=== PATIENT | male | born 1945 | race Caucasian/White ===

== ENCOUNTER 2017-04-29 08:23 | Emergency (ER) | payer OTHER ==
[2017-04-29 08:47] VITALS: BMI 24.7
--- NOTE | 2017-04-29 09:44 | PDOC ---
History of Present Illness - General Chief Complaint: Shortness of Breath Stated Complaint: SOB Time Seen by Provider: 04/29/17 08:39 History Source: Patient Exam Limitations: No Limitations - History of Present Illness Initial Comments: 04/29/17 08:41 The patient is a 72 year old male, with a significant past medical history of HTN, DM, COPD, vertigo, GERD, who presents to the emergency department with increasing SOB since this morning. Patient has chronic SOB, but states he woke up this morning with increased work of breathing and a few day hx of cough with yellow sputum. Patient also states he has chest pain diffusely across his chest , which is pleuritic in nature. Patient denies fever, chills, N/V/D/C, lower extremity edema, or calf pain. Allergies: NKDA Past surgical history: hernia surgery Social history: Former smoker >20 yrs 1 ppd PMD - Dr. Sheth Past History - Past Medical History Allergies/Adverse Reactions: Allergies Allergy/AdvReac Type Severity Reaction Status Date / Time No Known Allergies Allergy Unverified 04/29/17 08:28 Home Medications: Ambulatory Orders Azilsartan Medoxomil [Edarbi] 80 mg PO DAILY 01/29/13 Cetirizine HCl [Zyrtec] 10 mg PO DAILY 01/29/13 Clopidogrel Bisulfate 75 mg PO DAILY 01/29/13 Hydrocortisone 2.5% Topical Cr [Anusol-Hc -] 1 applic RC ONCE 01/29/13 Meclizine HCl [Antivert -] 12.5 mg PO TID 01/29/13 Multivitamin,Ther and Minerals [Vitamin and Minerals] 1 PO DAILY 01/29/13 Novolog Mix 70-30 Flexpen Syrn 1 unit SQ PRN 01/29/13 Omeprazole [Prilosec (RX)] 20 mg PO DAILY #0 capsule 01/29/13 Ranolazine [Ranexa] 500 mg PO DAILY 01/29/13 Sitagliptin Phosphate [Januvia] 100 mg PO DAILY 01/29/13 Albuterol Sulfate Inhaler - [Ventolin HFA Inhaler -] 1 puff IH BID PRN #1 inhaler 04/29/17 Azithromycin 250 mg PO DAILY #4 tablet 04/29/17 Prednisone [Prednisone 50 MG TABLETS] 50 mg PO DAILY #4 tablet 10/07/17 Anemia: No Asthma: Yes Cancer: No Cardiac Disorders: No CVA: No COPD: No CHF: No Dementia: No Diabetes: Yes GI Disorders: No Disorders: No HTN: Yes Hypercholesterolemia: No Liver Disease: Yes (CIRRHOSIS) Seizures: No Thyroid Disease: No - Surgical History Abdominal Surgery: No (hernia) Appendectomy: No Cardiac Surgery: No Cholecystectomy: No Lung Surgery: No Neurologic Surgery: No Orthopedic Surgery: No - Suicide/Smoking/Psychosocial Hx Smoking History: Never smoked Have you smoked in the past 12 months: No If you are a former smoker, when did you quit?: 10 YEARS Information on smoking cessation initiated: No Hx Alcohol Use: No Drug/Substance Use Hx: No Substance Use Type: None Review of Systems - Review of Systems Able to Perform ROS?: Yes Comments:: 04/29/17 08:41 GENERAL/CONSTITUTIONAL: No fever or chills. No weakness. HEAD, EYES, EARS, NOSE AND THROAT: No change in vision. No ear pain or discharge. No sore throat. CARDIOVASCULAR: + chest pain, + shortness of breath RESPIRATORY: +cough w/ yellow sputum, +wheezing, No hemoptysis. GASTROINTESTINAL: No nausea, vomiting, diarrhea or constipation. GENITOURINARY: No dysuria, frequency, or change in urination. MUSCULOSKELETAL: No joint or muscle swelling or pain. No neck or back pain. SKIN: No rash NEUROLOGIC: No headache, vertigo, loss of consciousness, or change in strength/ sensation. ENDOCRINE: No increased thirst. No abnormal weight change HEMATOLOGIC/LYMPHATIC: No anemia, easy bleeding, or history of blood clots. ALLERGIC/IMMUNOLOGIC: No hives or skin allergy. *Physical Exam - Vital Signs Last Vital Signs Temp Pulse Resp BP Pulse Ox 97.8 F 98 H 20 140/67 94 L 04/29/17 08:25 04/29/17 08:25 04/29/17 08:25 04/29/17 08:25 04/29/17 08:25 - Physical Exam Comments: 04/29/17 08:41 GENERAL: Awake, alert, and fully oriented, in no acute distress. On non rebreather HEAD: No signs of trauma, normocephalic, atraumatic EYES: PERRLA, EOMI, sclera anicteric, conjunctiva clear NECK: Normal ROM, supple, no lymphadenopathy, JVD, or masses LUNGS: No distress, speaks full sentences, Inspiratory and expiratory wheezing bilaterally, No crackles heard on auscultation HEART: Regular rate and rhythm, normal S1 and S2, no murmurs, rubs or gallops, peripheral pulses normal and equal bilaterally. ABDOMEN: Soft, +RUQ tenderness, +Branch's sign, normoactive bowel sounds. No guarding, no rebound. No masses EXTREMITIES: Normal inspection, Normal range of motion, no edema. No clubbing or cyanosis. NEUROLOGICAL: Cranial nerves II through XII grossly intact. Normal speech, normal gait, no focal sensorimotor deficits SKIN: Warm, Dry, normal turgor, no rashes or lesions noted. ED Treatment Course - LABORATORY CBC & Chemistry Diagram: 04/29/17 10:30 04/29/17 10:30 Medical Decision Making - Medical Decision Making 04/29/17 10:55 The patient is a 72 year old male, with a significant past medical history of HTN, DM, COPD, vertigo, GERD, who presents to the emergency department with increasing SOB since this morning. DDx: COPD exacerbation, Pneumonia, Acute cholecystitis Less likely: PE, ACS Plan: CBC, CMP, Lipase, VBG, sx treatment, RUQ u/s, BNP, CXR, EKG, Cardiac profile 04/29/17 11:12 CXR- no acute pathology 04/29/17 12:12 CBC, CMP, Lipase- unremarkable Patient feeling much better. Pt is stable for d/c. *DC/Admit/Observation/Transfer Diagnosis at time of Disposition: COPD (chronic obstructive pulmonary disease) Qualifiers: COPD type: COPD with acute exacerbation Qualified Code(s): J44.1 - Chronic obstructive pulmonary disease with (acute) exacerbation; J44.1 - Chronic obstructive pulmonary disease with (acute) exacerbation; J44.1 - Chronic obstructive pulmonary disease with (acute) exacerbation; J44.1 - Chronic obstructive pulmonary disease with (acute) exacerbation - Discharge Dispostion Disposition: HOME Condition at time of disposition: Stable - Prescriptions Prescriptions: Azithromycin 250 mg PO DAILY #4 tablet Prednisone [Prednisone 50 MG TABLETS] 50 mg PO DAILY #4 tablet Albuterol Sulfate Inhaler - [Ventolin HFA Inhaler -] 1 puff IH BID PRN #1 inhaler PRN Reason: Wheezing - Referrals Referrals: Pete Sheth MD [Primary Care Provider] - - Patient Instructions Printed Discharge Instructions: DI for Chronic Obstructive Pulmonary Disease Additional Instructions: Please follow up with your primary care provider within 1 week. Your ultrasound showed some findings on your kidney that may be concerning for cancer. It is important to follow up for further evaluation. If you have chest pain, worsening shortness of breath, or any new/worsening symptoms please come back to the hospital immediately.
[2017-04-29] MEDS ORDERED: ALBUTEROL SO4 2.5/IPRATROPIUM 0.5 INH SOL 3 ML VIAL.NEB. NEB ONE ×2 (10:19→11:39)
[2017-04-29] MEDS ORDERED: predniSONE 20 MG TABLET (UD) PO ONE (10:47)
[2017-04-29] MEDS ORDERED: predniSONE 10 MG TABLET (UD) ONE (10:52)
[2017-04-29] MEDS ORDERED: predniSONE 20 MG TABLET (UD) ONE (10:52)
[2017-04-29 10:55] LABS: MCH 27.6 pg (25.7-33.7); MCHC 31.9 g/dl (32.0-35.9); MEAN CELL VOLUME 86.6 fl (80-96); MEAN PLT VOLUME 8.3 fl (7.5-11.1); PLATELET COUNT 126 K/MM3 (134-434); WHITE BLOOD COUNT 6.6 K/mm3 (4.0-10.0)
[2017-04-29 11:11] LABS: VENOUS PH 7.44 (7.32-7.42)
[2017-04-29 11:20] LABS: ALBUMIN 2.8 g/dl (3.4-5.0); ALK PHOS 179 U/L (45-117); ANION GAP 8 (8-16); BILIRUBIN,TOTAL 1.3 mg/dL (0.2-1.0); CALCIUM 8.4 mg/dL (8.5-10.1); CO2 28 mmol/L (21-32); CREATININE 0.7 mg/dL (0.7-1.3); GLUCOSE,RANDOM 168 mg/dL (74-106); SGPT/ALT 32 U/L (12-78); TOT PROT 6.7 g/dl (6.4-8.2)
[2017-04-29 11:22] LABS: SGOT/AST 48 U/L (15-37)
[2017-04-29] MEDS ORDERED: AZITHROMYCIN 500 MG TABLET PO ONE (11:23)
[2017-04-29 11:24] LABS: INR 1.16 (0.82-1.09); PROTHROMBIN TIME (PATIENT) 12.8 SEC (9.98-11.88)
[2017-04-29 11:31] LABS: TOTAL CELLS COUNTED 100
[2017-04-29 11:32] LABS: BASOPHIL (MANUAL) 2 % (0-2.0)
[2017-04-29] MEDS ORDERED: AZITHROMYCIN 250 MG TABLET PO ONE (11:38)
[2017-04-29 11:41] LABS: CPK 256 IU/L (39-308)
[2017-04-29 11:42] LABS: TROPONIN I < 0.02 ng/ml (0.00-0.05)
[2017-04-29] MEDS ORDERED: AZITHROMYCIN 250 MG TABLET ONE (11:53)
--- NOTE | 2017-04-29 12:13 | PDOC ---
Attending Attestation - Resident Resident Name: BinduCarlal - ED Attending Attestation I have performed the following: I have examined & evaluated the patient, The case was reviewed & discussed with the resident, I agree w/resident's findings & plan, Exceptions are as noted - HPI HPI: 04/29/17 12:13 72 M with h/o HTN, DM, COPD, vertigo, GERD presenting to ER with SOB. Pt reports having a cough for several days. Today, he began to feel very wheezy and came to ER. Pt reports using his albuterol pump with some relief of his symptoms. He denies CP/SOB. States that this feels like his usual COPD exacerbations. Denies recent immobilization/travel. Denies leg swelling. No h/o DVT/PE. - Physicial Exam PE: 04/29/17 12:12 "GENERAL: Awake, alert, and fully oriented, in no acute distress HEAD: No signs of trauma EYES: PERRLA, EOMI, sclera anicteric, conjunctiva clear ENT: Auricles normal inspection, hearing grossly normal, nares patent, oropharynx clear without exudates. Moist mucosa NECK: Nontender, no stepoffs, Normal ROM, supple, no lymphadenopathy, JVD, or masses LUNGS: Mild bilateral expiratory wheezes, no crackles HEART: Regular rate and rhythm, normal S1 and S2, no murmurs, rubs or gallops ABDOMEN: Mild epigastric TTP, Soft, normoactive bowel sounds. No guarding, no rebound. No masses EXTREMITIES: Normal range of motion, no edema. No clubbing or cyanosis. No cords, erythema, or tenderness NEUROLOGICAL: Cranial nerves II through XII intact. 5/5 strength and sensation in all extremities, Normal speech, normal gait SKIN: Warm, Dry, normal turgor, no rashes or lesions noted. " - Medical Decision Making 04/29/17 12:14 72 M with SOB and mild expiratory wheezes on exam. Consistent with COPD exacerbation. Pt with no s/s volume overload or heart failure on exam. No evidence of DVT/PE. No chest pain to suggest ACS. Given duration of symptoms, single troponin should be sufficient to r/o ACS. Pt also found to have mild epigastric TTP on exam. Likely gastritis, will r/o acute carline or pancreatitis with labs and US. - Labs, Trop, BNP - CXR - Nebs, steroids, azithro - Abdominal US 04/29/17 12:17 Trop, BNP negative. CXR without evidence of PNA. Abd US negative for acute process. Pt reassessed- lung exam is completely clear s/p nebs and steroids. Abdominal exam now completely non-tender. Pt reports resolution of his SOB, now feels well and is requesting to go home. Vitals stable (O2 sat low 90s but likely pt' s baseline given h/o COPD). Pt is well appearing, in no distress, now with completely non-focal exam. Clinically stable for discharge. Will DC with prednisone, z-pack, an albuterol pump for mild COPD exacerbation.
[2017-04-29 12:36] VITALS: BP 145/76; PULSE 80; TEMP 98.3
--- NOTE | 2017-04-29 18:44 | EKG ---
Test Reason : Blood Pressure : / mmHG Vent. Rate : 084 BPM Atrial Rate : 084 BPM P-R Int : 170 ms QRS Dur : 148 ms QT Int : 432 ms P-R-T Axes : 065 -70 019 degrees QTc Int : 510 ms NORMAL SINUS RHYTHM POSSIBLE LEFT ATRIAL ENLARGEMENT LEFT ANTERIOR FASCICULAR BLOCK RIGHT BUNDLE BRANCH BLOCK ATRIAL ABNORMALITY ABNORMAL ECG CLINICAL CORRELATION IS RECOMMENDED REPEAT EKG INDICATED Confirmed by LEONARDO PARKS MD ([id number]) on 04/29/2017 6:44:16 PM Referred By: Confirmed By:LEONARDO PARKS MD
== END 2017-04-29 12:36 | disposition home or self-care (01) ==
LOC: JER 08:23
PROC: 3E0F7GC Introduction of Other Therapeutic Substance into Respiratory Tract, Via Natural or Artificial Opening (ICD-10-PCS; principal; 2017-04-29)
DX: J44.1 Chronic obstructive pulmonary disease with (acute) exacerbation (principal); I10 Essential (primary) hypertension; E11.9 Type 2 diabetes mellitus without complications; K21.9 Gastro-esophageal reflux disease without esophagitis; Z79.4 Long term (current) use of insulin; K74.60 Unspecified cirrhosis of liver
CPT/HCPCS: 36415; 71020-TC; 76705-TC; 80053; 82553; 82803; 83690; 83880; 84484; 85025; 85610; 85730; 93005; 93010; 94640; 99284-25

== ENCOUNTER 2017-11-25 07:38 | Emergency (ER) | payer OTHER ==
[2017-11-25 07:56] VITALS: BP 156/81; PULSE 95; TEMP 98.4; BMI 25.0
--- NOTE | 2017-11-25 08:00 | PDOC ---
History of Present Illness - General Chief Complaint: Asthma Stated Complaint: ASTHMA Time Seen by Provider: 11/25/17 07:58 History Source: Patient, Family Exam Limitations: No Limitations - History of Present Illness Initial Comments: 11/25/17 08:21 Pt is 72 yo M, with a signif PMHx of HTN, DM, asthma, COPD, vertigo, GERD, presenting with worsening SOB for the past 3 days. Pt has SOB both at rest and with exertion with pleuritic R sided chest pain. No retrosternal pain. There is cough, productive of "blackish" non bloody sputum. No fever, no nasal congestion, no sick contacts. Pt has no pedal edema, no dysuria or increased urinary frequency. Patient has used ventolin inhaler several times since onset of the symptoms with no relief. Son who was interpreted is concerned that the father may not know how to use the inhaler. He has a nebulizer at home that he does not use. Patient or son could not confirm long acting beta agonist or steroid use. Pt has never been intubated and last exacerbation was managed in the ED 05/09. 11/25/17 09:20 Timing/Duration: getting worse Severity: moderate Associated Symptoms: reports: cough. denies: chest pain, fever/chills, headaches, malaise, nausea/vomiting, syncope, weakness Past History - Past Medical History Allergies/Adverse Reactions: Allergies Allergy/AdvReac Type Severity Reaction Status Date / Time No Known Allergies Allergy Unverified 11/25/17 07:51 Home Medications: Ambulatory Orders Albuterol 0.083% Nebulizer Gladys [Ventolin 0.083% Nebulizer Soln -] 1 neb NEB Q4H PRN #90 vial 11/25/17 Azithromycin [Zithromax 1gm Robert -] 250 gm PO DAILY 4 Days #1 packet 11/25/17 Colestipol HCl 1 gm PO BID 11/25/17 Finasteride [Proscar] 5 mg PO Q48H 11/25/17 Inhaler, Assist Devices [Space Chamber Plus] 1 each Q6H #1 spacer 11/25/17 Lisinopril 10 mg PO DAILY 11/25/17 Metformin HCl 500 mg PO BID 11/25/17 Omeprazole 20 mg PO DAILY 11/25/17 Prednisone [Deltasone] 40 mg PO DAILY 4 Days #8 tablet 11/25/17 Sitagliptin Phosphate [Januvia] 100 mg PO DAILY 11/25/17 Anemia: No Asthma: Yes Cancer: No Cardiac Disorders: No CVA: No COPD: No CHF: No Dementia: No Diabetes: Yes GI Disorders: No Disorders: No HTN: Yes Hypercholesterolemia: No Liver Disease: Yes (CIRRHOSIS) Seizures: No Thyroid Disease: No - Surgical History Abdominal Surgery: No (hernia) Appendectomy: No Cardiac Surgery: No Cholecystectomy: No Lung Surgery: No Neurologic Surgery: No Orthopedic Surgery: No - Suicide/Smoking/Psychosocial Hx Smoking History: Never smoked Have you smoked in the past 12 months: No If you are a former smoker, when did you quit?: 10 YEARS Hx Alcohol Use: No Drug/Substance Use Hx: No Substance Use Type: None Review of Systems - Review of Systems Able to Perform ROS?: Yes (Son helped interprete) Is the patient limited Malay proficient: Yes Constitutional: No: Chills, Diaphoresis, Fever, Loss of Appetite HEENTM: No: Nose Congestion, Throat Pain Respiratory: Yes: Cough, Shortness of Breath, SOB with Exertion, SOB at Rest, Wheezing, Productive cough. No: Stridor, Hemoptysis Cardiac (ROS): Yes: Chest Pain (pleuritic chest pain). No: Edema, Irregular Heart Rate, Lightheadedness, Palpitations, Chest Tightness ABD/GI: No: Abd. Pain w/ defecation, Diarrhea, Difficulty Swallowing, Vomiting, Indigestion : No: Burning, Dysuria, Discharge, Incontinence, Urgency Musculoskeletal: Yes: Back Pain (chronic back pain). No: Joint Pain, Neck Pain , Joint Stiffness Neurological: No: Headache, Numbness, Paresthesia, Tremors, Unsteady Gait *Physical Exam - Vital Signs Last Vital Signs Temp Pulse Resp BP Pulse Ox 98.4 F 95 H 20 156/81 96 11/25/17 07:49 11/25/17 07:49 11/25/17 07:49 11/25/17 07:49 11/25/17 07:49 - Physical Exam General Appearance: Yes: Appropriately Dressed, Mild Distress, Other (able to speak in complete sentences) HEENT: positive: EOMI, CATHERINE. negative: Nasal Congestion, Sinus Tenderness Neck: positive: Supple. negative: Tender Respiratory/Chest: positive: Labored Respiration, Rhonchi, Wheezing Cardiovascular: positive: S1, S2, Tachycardia Gastrointestinal/Abdominal: positive: Normal Bowel Sounds, Soft, Other (full) Extremity: positive: Normal Inspection. negative: Pedal Edema Neurologic: positive: Fully Oriented, Alert, Motor Strength 5/5 Heart Score/ECG Review - History History: Slightly suspicious - Risk Factors Risk Factors Heart Score: Yes Hx Hypercholesterolemia, Yes Hx Hypertension, Yes Hx Diabetes Based on the list above the patient has:: 1-2 risk factors - ECG Intrepretation Rhythm: Regular Rhythm - [place]: Left [place] Deviation - P and CT Atrial Enlargement: Left (Left anterior fascicular block) - QRS Widened: RBBB Poor R Wave Progression: Yes Q Wave Present: No - ST and T Prolonged Q-T Interval: Yes - ECG Impressions Normal ECG: No Bradycardia: No Torsades tete Pointes: No WPW: No Comment:: 11/25/17 08:49 Normal sinus rhythm, Ventricular rate 78bpm, with possible L atrial enlargement , QT/QTC-424/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 Questionable posterior infiltrate on Lateral view Will give 500mg iv azithromycin stat To discharge home on z pack if trops are negative 11/25/17 09:38 Patient refused to have a repeat troponin and decided to sign out AMA 40mg prednisone daily x 4 days, albuterol nebs, spacer wand zithromax 250mg daily x 4 days were all prescribed 11/25/17 10:37 Patient was not formally discharged. He signed against medical advise. We however prescribed the medications noted above and asked him to follow up with the contract technician 11/25/17 10:58 *DC/Admit/Observation/Transfer Diagnosis at time of Disposition: AMA - Signed out against medical advice - Prescriptions Prescriptions: Albuterol 0.083% Nebulizer Gladys [Ventolin 0.083% Nebulizer Soln -] 1 neb NEB Q4H PRN #90 vial PRN Reason: Short Of Breath/Wheezing Azithromycin [Zithromax 1gm Robert -] 250 gm PO DAILY 4 Days #1 packet Inhaler, Assist Devices [Space Chamber Plus] 1 each MC Q6H #1 spacer Prednisone [Deltasone] 40 mg PO DAILY 4 Days #8 tablet - Referrals Referrals: Pete Sheth MD [Primary Care Provider] - 1 week Wyatt Medina MD [Staff Physician] - 1 week - Patient Instructions Printed Discharge Instructions: Asthma -- Adult, DI for Pneumonia -- Adult Additional Instructions: You were seen here for shortness of breath and cough, with increased sputum production We gave you medication to help with your breathing (Duonebs and solumedrol) We gave you one dose of 500mg iv azithromycin antibiotic We will discharge you on oral azithromycin, with a spacer to help you use your ventolin inhaler, and steroids We are referring you to a Hotel Reservation Agent- Dr Medina to follow up with in a week's time Please follow up with your primary care doctor in a week's time If you feel your symptoms are getting worse, please return to the emergency room - Post Discharge Activity - Attestations Physician Attestion: 11/25/17 09:46 Melany Yancey MD
--- NOTE | 2017-11-25 08:10 | PDOC ---
Attending Attestation - HPI HPI: 11/25/17 08:43 The patient is a 72 year old male, with a significant past medical history of HTN, DM, COPD, vertigo, GERD, who presents to the emergency department with 3 days of shortness of breath that progressively worsened today. Patient reports experiencing chest discomfort and abdominal pain only when he is coughing. His cough is productive of black sputum. The patient denies any fever, chills, nausea, vomiting, or diarrhea. Allergies: NKDA Past surgical history: hernia surgery Social history: Former smoker >20 yrs 1 pack per day PMD - Dr. Morales - Physicial Exam PE: 11/25/17 08:43 GENERAL: Awake, alert, and fully oriented, in no acute distress HEAD: No signs of trauma EYES: PERRLA, EOMI, sclera anicteric, conjunctiva clear ENT: Auricles normal inspection, hearing grossly normal, nares patent, oropharynx clear without exudates. Moist mucosa NECK: Normal ROM, supple, no lymphadenopathy, JVD, or masses LUNGS: (+)Wheezing and coarse breath sounds bilaterally, diffusely;audible wheezing in the room. No conversational dyspnea HEART: Regular rate and rhythm, normal S1 and S2, no murmurs, rubs or gallops ABDOMEN: Soft, nontender, normoactive bowel sounds. No guarding, no rebound. No masses EXTREMITIES: Normal range of motion, no edema. No clubbing or cyanosis. No cords, erythema, or tenderness NEUROLOGICAL: Cranial nerves II through XII grossly intact. Normal speech, normal gait SKIN: Warm, Dry, normal turgor, no rashes or lesions noted <Salome Rodarte - Last Filed: 11/25/17 08:43> - Resident Resident Name: Melany Yancey I - ED Attending Attestation I have performed the following: I have examined & evaluated the patient, The case was reviewed & discussed with the resident, I agree w/resident's findings & plan, Exceptions are as noted - Medical Decision Making 11/25/17 08:10 I, Dr. Nika Alston, DO, attest that this document has been prepared under my direction and personally reviewed by me in its entirety. I further attest, that it accurately reflects all work, treatment, procedures and medical decision -making performed by me. 11/25/17 08:37 a/p: 72yo male with hx of COPD with sob and productive cough x 3 days -concern for copd exacerbation with poss pna vs mucopurulent bronchitis -however, CAD risk factors -will check labs, ekg, cxr, vbg, trop x 2 -will give nebs, steroids -will monitor and reassess -nontoxic appearance, but audible wheezing -no conversational dyspnea 11/25/17 09:30 labs reviewed, hx of cirrhosis no elevated wbc pt ambulatory in the Ed with a steady gait and no resp distress pt states feeling much better after nebs will repeat trop at 1130a initial trop negative 11/25/17 10:10 pt states he no longer wants to wait for repeat trop and for further eval states he feels better and wants to go home discussed that the work up has not been completed states he wants to sign out AMA states he will call dr. morales and will make an appt with pulm as outpt pt signed the AMA paperwork Note: The patient insists on leaving the emergency dept and is signing out against medical advice. The patient understands the risks and complications that may result from the refusal of medical care and admission which includes and permanent disability. The patient has the mental capacity of understanding the risks of refusing care and is capable of making an informed decision. The patient was instructed to return to the emergency department should he change his mind regarding medical care or should his condition worsen. The patient signed the Against Medical Advice form. Son at the bedside agrees with the plan <Nika Alston - Last Filed: 11/25/17 10:12> Discharge Disposition - Discharge Dispostion Admit: No <Nika Alston - Last Filed: 11/25/17 10:12> - Diagnosis AMA - Signed out against medical advice - Discharge Dispostion Disposition: AGAINST MEDICAL ADVICE Condition at time of disposition: Unchanged/Unknown - Prescriptions Prescriptions: Albuterol 0.083% Nebulizer Gladys [Ventolin 0.083% Nebulizer Soln -] 1 neb NEB Q6H #1 vial Azithromycin [Zithromax 1gm Robert -] 250 gm PO DAILY 4 Days #1 packet Prednisone [Deltasone] 40 mg PO DAILY 4 Days #8 tablet - Referrals Referrals: Wyatt Medina MD [Staff Physician] - 1 week Pete Morales MD [Primary Care Provider] - 1 week - Patient Instructions Printed Discharge Instructions: Asthma -- Adult, DI for Pneumonia -- Adult Additional Instructions: You were seen here for shortness of breath and cough, with increased sputum production We gave you medication to help with your breathing (Duonebs and solumedrol) We gave you one dose of 500mg iv azithromycin antibiotic We will discharge you on oral azithromycin, with a spacer to help you use your ventolin inhaler, and steroids We are referring you to a Computer Forensics Technician- Dr Medina to follow up with in a week's time Please follow up with your primary care doctor in a week's time If you feel your symptoms are getting worse, please return to the emergency room - Post Discharge Activity Heart Score/ECG Review - ECG Intrepretation Comment:: 11/25/17 09:01 sinus at 78, L axis, RBBB, LAFB, unchanged from prior, no new acute st/t wave findings <Nika Alston - Last Filed: 11/25/17 10:12> Attestations - Attestations 11/25/17 08:52 Documentation prepared by Salome Rodarte, acting as ophthalmic medical technologist for Nika Alston DO. <Salome Rodarte - Last Filed: 11/25/17 08:43>
[2017-11-25] MEDS ORDERED: ALBUTEROL SO4 2.5/IPRATROPIUM 0.5 INH SOL 3 ML VIAL.NEB. NEB ONE ×3 (08:16→08:22)
[2017-11-25] MEDS ORDERED: methylPREDNISolone NA SUCC 125 MG/2 ML VIAL IVPUSH ONE (08:17)
[2017-11-25] MEDS ORDERED: methylPREDNISolone NA SUCC 125 MG/2 ML VIAL ONE (08:23)
[2017-11-25 08:48] LABS: VENOUS PC02 47.4 mmHg (38-52); VENOUS PH 7.37 (7.32-7.42); VENOUS PO2 38.3 mmHg (28-48)
[2017-11-25 08:57] LABS: HEMATOCRIT 42.9 % (35.4-49); HEMOGLOBIN 14.3 GM/dL (11.7-16.9); MCH 27.7 pg (25.7-33.7); MCHC 33.4 g/dl (32.0-35.9); MEAN CELL VOLUME 82.8 fl (80-96); PLATELET COUNT 141 K/MM3 (134-434); RBC 5.18 M/mm3 (4.00-5.60); RDW 15.1 % (11.9-15.9); WHITE BLOOD COUNT 6.8 K/mm3 (4.0-10.0)
[2017-11-25 09:09] LABS: ALBUMIN 3.7 g/dl (3.4-5.0); ALK PHOS 185 U/L (45-117); ANION GAP 9 (8-16); BLOOD UREA NITROGEN 11 mg/dL (7-18); CALCIUM 8.7 mg/dL (8.5-10.1); CHLORIDE 105 mmol/L (98-107); CO2 26 mmol/L (21-32); CREATININE 0.7 mg/dL (0.7-1.3); GLUCOSE,RANDOM 101 mg/dL (74-106); SGPT/ALT 63 U/L (12-78); SODIUM 140 mmol/L (136-145); TOT PROT 7.5 g/dl (6.4-8.2)
[2017-11-25 09:15] LABS: POTASSIUM 4.9 mmol/L (3.5-5.1); SGOT/AST 101 U/L (15-37)
[2017-11-25] MEDS ORDERED: AZITHROMYCIN IVPB 500 MG in DEXTROSE 5%-WATER - 250 ML IVPB ONE (09:31)
[2017-11-25 10:38] LABS: ACANTHOCYTES 0; ANISOCYTOSIS 0; HELMET CELLS 0; HOWELL-JOLLY BODIES 0; MACROCYTOSIS 0; OVALOCYTE 0; PLATELET ESTIMATE DECREASED; ROULEAU 0; SICKELED CELLS 0; TARGET CELLS 0; TEAR DROP CELLS 0; TOXIC GRANULATION 0
--- NOTE | 2017-11-25 14:32 | EKG ---
Test Reason : Blood Pressure : / mmHG Vent. Rate : 078 BPM Atrial Rate : 078 BPM P-R Int : 178 ms QRS Dur : 148 ms QT Int : 424 ms P-R-T Axes : 066 -73 023 degrees QTc Int : 483 ms NORMAL SINUS RHYTHM POSSIBLE LEFT ATRIAL ENLARGEMENT LEFT AXIS DEVIATION RIGHT BUNDLE BRANCH BLOCK ABNORMAL ECG WHEN COMPARED WITH ECG OF 29-APR-2017 09:38, NO SIGNIFICANT CHANGE WAS FOUND Confirmed by MD Carson, Enmanuel ([id number]) on 11/25/2017 2:32:37 PM Referred By: Confirmed By:Enmanuel Byrd MD
== END 2017-11-25 10:12 | disposition left against medical advice (07) ==
LOC: JER 07:38
PROC: 3E0F7GC Introduction of Other Therapeutic Substance into Respiratory Tract, Via Natural or Artificial Opening (ICD-10-PCS; principal; 2017-11-25)
PROC: 3E0F7GC Introduction of Other Therapeutic Substance into Respiratory Tract, Via Natural or Artificial Opening (ICD-10-PCS; 2017-11-25)
PROC: 3E0333Z Introduction of Anti-inflammatory into Peripheral Vein, Percutaneous Approach (ICD-10-PCS; 2017-11-25)
DX: J44.9 Chronic obstructive pulmonary disease, unspecified (principal); J45.909 Unspecified asthma, uncomplicated; I10 Essential (primary) hypertension; E11.9 Type 2 diabetes mellitus without complications; Z79.84 Long term (current) use of oral hypoglycemic drugs; K21.9 Gastro-esophageal reflux disease without esophagitis; K74.69 Other cirrhosis of liver
CPT/HCPCS: 36415; 71046-TC-FY; 80053; 82803; 84484; 85025; 93005; 93010; 94640; 96374; 99283-25; J7620

== ENCOUNTER 2018-07-10 23:49 | Inpatient (IN) | payer OTHER ==
--- NOTE | 2018-07-11 00:15 | PDOC ---
History of Present Illness - General Chief Complaint: Asthma Stated Complaint: Asthma Time Seen by Provider: 07/11/18 00:12 - History of Present Illness Initial Comments: 07/11/18 02:23 The patient is a 73 year old male with a history of Asthma, COPD, HTN, HLD, DM who presents for evaluation of shortness of breath. The patient reports a several day history of worsening shortness of breath with an associated non- productive cough. He reports worsening shortness of breath at rest and with exertion despite use of his inhaler prompting his presentation to the ED for further evaluation. He otherwise denies fevers, chills, chest pain, nausea, vomiting, abdominal pain, or changes with urination or bowel movements. His family notes that the patient has been experiencing worsening cough over the past 1 month as well. Past History - Past Medical History Allergies/Adverse Reactions: Allergies Allergy/AdvReac Type Severity Reaction Status Date / Time No Known Allergies Allergy Verified 07/11/18 00:19 Home Medications: Ambulatory Orders Albuterol 0.083% Nebulizer Gladys [Ventolin 0.083% Nebulizer Soln -] 1 neb NEB Q4H PRN #90 vial 11/25/17 Colestipol HCl 1 gm PO BID 11/25/17 Lisinopril 10 mg PO DAILY 11/25/17 Sitagliptin Phosphate [Januvia] 100 mg PO DAILY 11/25/17 metFORMIN HCL [Metformin HCl] 500 mg PO BID 11/25/17 Anemia: No Asthma: Yes Cancer: No Cardiac Disorders: No CVA: No COPD: No CHF: No Dementia: No Diabetes: Yes GI Disorders: No Disorders: No HTN: Yes Hypercholesterolemia: Yes Liver Disease: Yes (CIRRHOSIS) Seizures: No Thyroid Disease: No - Surgical History Abdominal Surgery: No (hernia) Appendectomy: No Cardiac Surgery: No Cholecystectomy: No Lung Surgery: No Neurologic Surgery: No Orthopedic Surgery: No - Suicide/Smoking/Psychosocial Hx Smoking History: Never smoked Have you smoked in the past 12 months: No If you are a former smoker, when did you quit?: 10 YEARS Hx Alcohol Use: No Drug/Substance Use Hx: No Substance Use Type: None Review of Systems - Review of Systems Comments:: 07/11/18 02:25 Constitutional: No fevers, chills, fatigue, malaise HEENT: No Rhinorrhea, nasal congestion, visual changes Cardiovascular: No chest pain, syncope, palpitations, lightheadedness Respiratory: SOB, Cough. No Hemoptysis, Gastrointestinal: No Abdominal pain, Nausea, Vomiting, Constipation, Diarrhea, Melena Genitourinary: No Dysuria, Frequency, Urgency, Hesitancy, Hematuria, Flank pain Musculoskeletal: No Myalgia, arthralgia Skin: No rashes, itching, bruising, pallor Neurologic: No Headache, Dizziness, Numbness, Weakness, or Tingling Psychiatric: No Hallucinations. No SI or HI *Physical Exam - Physical Exam Comments: 07/11/18 02:25 General Appearance: Nourished. No Apparent Distress HEENT: No Pharyngeal Erythema, Tonsillar Exudate, Tonsillar Erythema Neck: No Cervical Lymphadenopathy Respiratory/Chest: Bilateral inspiratory and expiratory wheezing with poor air movement on exam. No Crackles, Rales, Rhonchi, Cardiovascular: Regular Rhythm, Regular Rate. No Murmur, Gallops, Rubs Gastrointestinal/Abdominal: Normal Bowel Sounds, Soft. No Guarding, Rebound, Tenderness Musculoskeletal: No CVA Tenderness Extremity: Normal Capillary Refill Integumentary: Normal Color, Dry, Warm Neurologic: Fully Oriented, Alert, Normal Mood/Affect, Normal Response, Heart Score/ECG Review #1 ECG reviewed & interpreted by me at: 02:26 Compared to previous ECG there are: Changes noted 07/11/18 02:26 Right bundle branch block Left axis deviation ED Treatment Course - LABORATORY CBC & Chemistry Diagram: 07/11/18 01:10 07/11/18 01:10 Medical Decision Making - Medical Decision Making 07/11/18 02:27 The patient is a 73 year old male with a history of Asthma, COPD, HTN, HLD, DM who presents for evaluation of shortness of breath. Differential includes but is not limited to: Asthma, COPD, Pneumonia, ACS, Infectious, Metabolic Derangement. Given the patient's history and physical exam, we will obtain a cbc, cmp, troponin, bnp, ekg, chest plain film to evaluate further. We will treat with solumedrol, duoneb and continue to monitor and reassess while here in the ED. 07/11/18 05:51 CBC, cmp, troponin, bnp is unremarkable. Chest plain film is unremarkable. The patient has new twave inversions in leads v2-v4 with a worsening RBBB. He reports some improvement in his symptoms, however given his significant co- morbidities and EKG changes, we believe he requires observation admission for further monitoring. We discussed the case with the admitting team who accepted the patient for admission. *DC/Admit/Observation/Transfer Diagnosis at time of Disposition: Shortness of breath, Abnormal EKG COPD (chronic obstructive pulmonary disease) Qualifiers: COPD type: unspecified COPD Qualified Code(s): J44.9 - Chronic obstructive pulmonary disease, unspecified - Discharge Dispostion Condition at time of disposition: Stable Decision to Admit order: Yes - Referrals - Patient Instructions - Post Discharge Activity
[2018-07-11 00:19] VITALS: BMI 26.6
[2018-07-11] MEDS ORDERED: ALBUTEROL SO4 2.5/IPRATROPIUM 0.5 INH SOL 3 ML VIAL.NEB. NEB ONE ×2 (00:28→00:48)
[2018-07-11] MEDS ORDERED: methylPREDNISolone NA SUCC 125 MG/2 ML VIAL IVPUSH ONE (00:30)
[2018-07-11] MEDS ORDERED: methylPREDNISolone NA SUCC 125 MG/2 ML VIAL ONE (00:48)
[2018-07-11 01:19] LABS: HEMOGLOBIN 13.6 GM/dL (11.7-16.9); MCH 25.9 pg (25.7-33.7); RBC 5.26 M/mm3 (4.00-5.60)
[2018-07-11 01:23] LABS: BASO % 4.8 % (0-2.0); EOS % 16.9 % (0-4.5); HEMATOCRIT 40.5 % (35.4-49); LYMPH % 18.5 % (8-40); MCHC 33.6 g/dl (32.0-35.9); MEAN CELL VOLUME 77.1 fl (80-96); MEAN PLT VOLUME 8.7 fl (7.5-11.1); MONO % 10.8 % (3.8-10.2); PLATELET COUNT 146 K/MM3 (134-434); RDW 18.3 % (11.9-15.9); WHITE BLOOD COUNT 5.2 K/mm3 (4.0-10.0)
[2018-07-11 01:49] LABS: ALBUMIN 3.1 g/dl (3.4-5.0); ALK PHOS 219 U/L (45-117); ANION GAP 5 MMOL/L (8-16); BILIRUBIN,TOTAL 1.6 mg/dL (0.2-1); BLOOD UREA NITROGEN 10 mg/dL (7-18); CALCIUM 8.4 mg/dL (8.5-10.1); CHLORIDE 106 mmol/L (98-107); CO2 27 mmol/L (21-32); CREATININE 0.8 mg/dL (0.55-1.3); GLUCOSE,RANDOM 125 mg/dL (74-106); POTASSIUM 5.1 mmol/L (3.5-5.1); SGOT/AST 91 U/L (15-37); SGPT/ALT 67 U/L (13-61); SODIUM 138 mmol/L (136-145); TOT PROT 7.3 g/dl (6.4-8.2)
--- NOTE | 2018-07-11 02:45 | PDOC ---
Attending Attestation - Resident Resident Name: Enmanuel Galeano - ED Attending Attestation I have performed the following: I have examined & evaluated the patient, The case was reviewed & discussed with the resident, I agree w/resident's findings & plan, Exceptions are as noted - HPI HPI: 07/11/18 02:49 The patient is a 73 year old male, with a significant past medical history of asthma, COPD, HTN, HLD, DM, who presents to the emergency department with shortness of breath for a few weeks and nonproductive cough for about a month with worsening dyspnea while at rest today. The patient denies chest pain, headache and dizziness. Denies LE edema, calf pain. The patient denies fever, chills, nausea, vomit, diarrhea and constipation. The patient denies dysuria, frequency, urgency and hematuria. Allergies: NKDA PCP - Dr. Sheth - Physicial Exam PE: 07/11/18 02:49 agree with resident exam - Medical Decision Making 07/11/18 02:52 73yo M hx HTN, HL, asthma, DM presents to the ED with progressive SOB. Vitals unremarkable. Exam with mild wheezing. EKG with new TWI. Pt feels mildly improved with nebs, steroids but still SOB. Anticipate admission. Heart Score/ECG Review #1 07/11/18 02:50 Twelve-lead EKG was performed and reviewed by me. Normal sinus rhythm, rate 86. Left axis deviation. Right bundle branch block. Deep TWI V2-V4. Compared to EKG from 11/25/2017, T-wave inversions are new in V2 and V4.
--- NOTE | 2018-07-11 04:28 | HP ---
CHIEF COMPLAINT: Shortness of Breath PCP: Meryl HISTORY OF PRESENT ILLNESS: 73 year old male, with a significant past medical history of asthma, COPD, HTN, HLD, DM c/o shortness of breath and nonproductive cough worsening for the past few days. He is accompanied by his grandson. He admits that cold weather exacerbates his reactive airway disease. He has an albuterol nebulizer at home which he used without success. ER course was notable for: (1) solumedrol IV (2) duoneb (3) Recent Travel: no PAST MEDICAL HISTORY: asthma, COPD, HTN, HLD, DM PAST SURGICAL HISTORY: no Social History: Smoking: quit Alcohol: no Drugs: no Family History: no Allergies No Known Allergies Allergy (Verified 07/11/18 00:19) HOME MEDICATIONS: Home Medications Medication Instructions Recorded Albuterol 0.083% Nebulizer Gladys 1 neb NEB Q4H PRN #90 vial 11/25/17 [Ventolin 0.083% Nebulizer Soln -] Colestipol HCl 1 gm PO BID 11/25/17 Lisinopril 10 mg PO DAILY 11/25/17 Sitagliptin Phosphate [Januvia] 100 mg PO DAILY 11/25/17 metFORMIN HCL [Metformin HCl] 500 mg PO BID 11/25/17 REVIEW OF SYSTEMS CONSTITUTIONAL: Absent: fever, chills, diaphoresis, generalized weakness, malaise, loss of appetite, weight change HEENT: Absent: rhinorrhea, nasal congestion, throat pain, throat swelling, difficulty swallowing, mouth swelling, ear pain, eye pain, visual changes CARDIOVASCULAR: Absent: chest pain, syncope, palpitations, irregular heart rate, lightheadedness , peripheral edema RESPIRATORY: Absent: , dyspnea with exertion, orthopnea, wheezing, stridor, hemoptysis Present- cough, shortness of breath GASTROINTESTINAL: Absent: abdominal pain, abdominal distension, nausea, vomiting, diarrhea, constipation, melena, hematochezia GENITOURINARY: Absent: dysuria, frequency, urgency, hesitancy, hematuria, flank pain, genital pain MUSCULOSKELETAL: Absent: myalgia, arthralgia, joint swelling, back pain, neck pain SKIN: Absent: rash, itching, pallor HEMATOLOGIC/IMMUNOLOGIC: Absent: easy bleeding, easy bruising, lymphadenopathy, frequent infections ENDOCRINE: Absent: unexplained weight gain, unexplained weight loss, heat intolerance, cold intolerance NEUROLOGIC: Absent: headache, focal weakness or paresthesias, dizziness, unsteady gait, seizure, mental status changes, bladder or bowel incontinence PSYCHIATRIC: Absent: anxiety, depression, suicidal or homicidal ideation, hallucinations. PHYSICAL EXAMINATION Vital Signs - 24 hr 07/10/18 23:50 Temperature 97.9 F Pulse Rate 98 H Respiratory 22 H Rate Blood Pressure 140/70 O2 Sat by Pulse 96 Oximetry (%) GENERAL: Awake, alert, and fully oriented, in no acute distress. HEAD: Normal with no signs of trauma. EYES: Pupils equal, round and reactive to light, extraocular movements intact, sclera anicteric, conjunctiva clear. No lid lag. EARS, NOSE, THROAT: Ears normal, nares patent, oropharynx clear without exudates. Moist mucous membranes. NECK: Normal range of motion, supple without lymphadenopathy, JVD, or masses. LUNGS: Breath sounds equal, clear to auscultation bilaterally. mild expiratory wheezes HEART: Regular rate and rhythm, normal S1 and S2 without murmur, rub or gallop. ABDOMEN: Soft, nontender, not distended, normoactive bowel sounds, no guarding, no rebound, no masses. reducible ventral hernia MUSCULOSKELETAL: Normal range of motion at all joints. No bony deformities or tenderness. No CVA tenderness. UPPER EXTREMITIES: 2+ pulses, warm, well-perfused. No cyanosis. No clubbing. No peripheral edema. LOWER EXTREMITIES: 2+ pulses, warm, well-perfused. No calf tenderness. No peripheral edema. NEUROLOGICAL: Cranial nerves II-XII intact. Normal speech. Normal gait. PSYCHIATRIC: Cooperative. Good eye contact. Appropriate mood and affect. SKIN: Warm, dry, normal turgor, no rashes or lesions noted, normal capillary refill. Laboratory Results - last 24 hr 07/11/18 07/11/18 07/11/18 01:10 01:10 01:10 WBC 5.2 RBC 5.26 Hgb 13.6 Hct 40.5 MCV 77.1 L MCH 25.9 MCHC 33.6 RDW 18.3 H Plt Count 146 MPV 8.7 Absolute Neuts (auto) 2.6 Neutrophils % 49.0 Lymphocytes % 18.5 Monocytes % 10.8 H Eosinophils % 16.9 H Basophils % 4.8 H Nucleated RBC % 0 Sodium 138 Potassium 5.1 Chloride 106 Carbon Dioxide 27 Anion Gap 5 L BUN 10 Creatinine 0.8 Creat Clearance w eGFR > 60 Random Glucose 125 H Calcium 8.4 L Total Bilirubin 1.6 H AST 91 H ALT 67 H Alkaline Phosphatase 219 H Creatine Kinase 201 Creatine Kinase Index 1.5 CK-MB (CK-2) 3.2 Troponin I < 0.02 B-Natriuretic Peptide 25.7 Total Protein 7.3 Albumin 3.1 L CXR -reviewed ekg - reviewed, 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 Troponin was negative. -observation -duobebs q6hrs -prednisone 40mg po daily -oxygen via nasal cannula -pulmonary consult -peak flow meter -flu swab -echo -repeat troponin #Transaminitis -hep a, b, c serology -liver u/s #HTN - controlled -c/w lisinopril #DM -novolog sliding scale DVT ppx- heparin sc Visit type - Emergency Visit Emergency Visit: Yes Care time: The patient presented to the Emergency Department on the above date and was hospitalized for further evaluation of their emergent condition. - New Patient This patient is new to me today: Yes Date on this admission: 07/11/18 - Critical Care Critical Care patient: No
[2018-07-11 07:41] LABS: ALBUMIN 3.2 g/dl (3.4-5.0); BILIRUBIN,DIRECT 1.1 mg/dL (0.0-0.2); BILIRUBIN,TOTAL 1.8 mg/dL (0.2-1); TOT PROT 7.5 g/dl (6.4-8.2)
--- NOTE | 2018-07-11 09:42 | EKG ---
Test Reason : Blood Pressure : / mmHG Vent. Rate : 086 BPM Atrial Rate : 086 BPM P-R Int : 168 ms QRS Dur : 144 ms QT Int : 422 ms P-R-T Axes : 061 -64 005 degrees QTc Int : 504 ms NORMAL SINUS RHYTHM LEFT AXIS DEVIATION RIGHT BUNDLE BRANCH BLOCK INFERIOR INFARCT , AGE UNDETERMINED ABNORMAL ECG WHEN COMPARED WITH ECG OF 25-NOV-2017 08:38, INFERIOR INFARCT IS NOW PRESENT T WAVE INVERSION MORE EVIDENT IN ANTERIOR LEADS Confirmed by ANITA OLIVAREZ MD ([id number]) on 07/11/2018 9:42:09 AM Referred By: Confirmed By:ANITA OLIVAREZ MD
[2018-07-11] MEDS: ALBUTEROL SO4 2.5/IPRATROPIUM 0.5 INH SOL 3 ML VIAL.NEB. NEB SCH ×2 (10:40→21:30)
[2018-07-11] MEDS: predniSONE 20 MG TABLET (UD) PO SCH (10:41)
[2018-07-11] MEDS: HEPARIN NA (PORCINE) 5,000 UNITS/ML 1ML VIAL SQ SCH ×2 (10:42→22:32)
[2018-07-11] MEDS: LISINOPRIL 10 MG TABLET (FP) PO SCH (10:42)
--- NOTE | 2018-07-11 11:54 | ECHO ---
Name: WON WATSON Exam:Adult Echocardiogram Study Date: 07/11/2018 08:15 AM Age: 73 yrs Reason For Study: Abnormal ECG Height: 64 in Weight: 155 lb BSA: 1.8 m2 MMode/2D Measurements & Calculations IVSd: 0.83 cm Ao root diam: 3.0 cm LVIDd: 4.2 cm LA dimension: 3.4 cm LVIDs: 2.5 cm LVPWd: 0.79 cm EDV(Teich): 76.7 ml ESV(Teich): 22.7 ml Doppler Measurements & Calculations MV E max garcia: 78.1 cm/sec TR max garcia: 242.3 cm/sec MV A max garcia: 121.7 cm/sec TR max P.5 mmHg MV E/A: 0.64 MV dec time: 0.07 sec PI end-d garcia: 148.0 cm/sec Med Peak E' Garcia: 6.3 cm/sec Med E/e': 12.4 Lat Peak E' Garcia: 9.5 cm/sec Lat E/e': 8.3 Procedure A two-dimensional transthoracic echocardiogram with color flow and Doppler was performed. Left Ventricle The left ventricular size, thickness and function are normal. The left ventricular ejection fraction is normal. E/A reversal consistent with but not diagnostic of poor LV compliance. The left ventricular w all motion is normal. Right Ventricle The right ventricle is normal in size and function. Atria Normal left and right atrial size and function. Mitral Valve There is trivial mitral valve thickening. There is no mitral valve stenosis. There is trace to mild m itral regurgitation. Tricuspid Valve The tricuspid valve is normal in structure and function. There is no tricuspid stenosis. There is Tra ce to mild tricuspid regurgitation. Right ventricular systolic pressure is normal. Aortic Valve The aortic valve is normal in structure and function. No hemodynamically significant valvular aortic stenosis. No aortic regurgitation is present. Pulmonic Valve The pulmonic valve is not well visualized. There is no pulmonic valvular stenosis. Mild pulmonic valv ular regurgitation. Great Vessels The aortic root is normal size. Pericardium/Pleura There is no pericardial effusion. Interpretation Summary The left ventricular size, thickness and function are normal The left ventricular ejection fraction is normal. The left ventricular wall motion is normal. There is trace to mild mitral regurgitation. There is Trace to mild tricuspid regurgitation. Right ventricular systolic pressure is normal. E/A reversal consistent with but not diagnostic of poor LV compliance MD Fco Guerrero 07/11/2018 11:53 AM
[2018-07-11] MEDS: INSULIN SLIDING SCALE (NOVOLOG) 1 VIAL SQ SCH ×3 (12:23→21:50)
--- NOTE | 2018-07-11 18:27 | PN ---
Progress Note, Physician Chief Complaint: SOB WITH NON PRODUCTIVE COUGH X 3 DAYS, PMHX OF COPD History of Present Illness: PREVIOUS NOTES AND EVENTS REVIEWED AWAKE AND ALERT NAD DENIES CHEST PAIN OR SOB - Current Medication List Current Medications: Active Medications Albuterol/Ipratropium (Duoneb -) 1 amp NEB RQID [facility] Last Admin: 07/11/18 10:40 Dose: 1 amp Heparin Sodium (Porcine) (Heparin -) 5,000 unit SQ BID [facility] Last Admin: 07/11/18 10:42 Dose: 5,000 unit Insulin Aspart (Novolog Vial Sliding Scale -) 1 vial SQ ACHS [facility]; Protocol Last Admin: 07/11/18 17:21 Dose: 10 units Lisinopril (Prinivil) 10 mg PO DAILY [facility] Last Admin: 07/11/18 10:42 Dose: 10 mg Prednisone (Deltasone -) 40 mg PO DAILY [facility] Last Admin: 07/11/18 10:41 Dose: 40 mg - Objective Vital Signs: Vital Signs Temperature 97 F L 07/11/18 17:02 Pulse Rate 90 07/11/18 17:02 Respiratory Rate 20 07/11/18 17:12 Blood Pressure 125/67 07/11/18 17:02 O2 Sat by Pulse Oximetry (%) 96 07/11/18 17:12 Constitutional: Yes: Well Nourished, No Distress, Calm Eyes: Yes: Conjunctiva Clear HENT: Yes: Normocephalic Neck: Yes: Supple Cardiovascular: Yes: Regular Rate and Rhythm Respiratory: Yes: Regular, CTA Bilaterally Gastrointestinal: Yes: Normal Bowel Sounds, Soft, Abdomen, Obese, Other ( UMBILICAL HERNIA) Musculoskeletal: Yes: WNL Extremities: Yes: WNL Edema: No Neurological: Yes: Alert, Oriented Psychiatric: Yes: Alert, Oriented Labs: CBC, BMP 07/11/18 01:10 07/11/18 01:10 Problem List - Problems (1) COPD (chronic obstructive pulmonary disease) Code(s): J44.9 - CHRONIC OBSTRUCTIVE PULMONARY DISEASE, UNSPECIFIED Qualifiers: COPD type: unspecified COPD Qualified Code(s): J44.9 - Chronic obstructive pulmonary disease, unspecified (2) Shortness of breath Code(s): R06.02 - SHORTNESS OF BREATH Assessment/Plan INHALED BRONCHODILATORS CONT WITH PO STEROIDS TELE MONITORING HEP PROFILE PENDING GI CONSULT FOR ELEVATED LFTS BGM, ISS DVT PPX
[2018-07-12] MEDS: INSULIN SLIDING SCALE (NOVOLOG) 1 VIAL SQ SCH ×3 (06:23→21:18)
[2018-07-12] MEDS: metFORMIN HCL 500 MG TABLET (FP) PO SCH ×2 (06:25→17:01)
[2018-07-12] MEDS: sitaGLIPtin PHOSPHATE 100 MG TABLET (FP) PO SCH (06:25)
[2018-07-12 06:41] LABS: HEMATOCRIT 36.9 % (35.4-49); HEMOGLOBIN 12.6 GM/dL (11.7-16.9); MEAN CELL VOLUME 76.4 fl (80-96); PLATELET COUNT 145 K/MM3 (134-434); RBC 4.83 M/mm3 (4.00-5.60); RDW 18.6 % (11.9-15.9); WHITE BLOOD COUNT 6.2 K/mm3 (4.0-10.0)
[2018-07-12 07:12] LABS: ALBUMIN 2.7 g/dl (3.4-5.0); ALK PHOS 140 U/L (45-117); ANION GAP 7 MMOL/L (8-16); BILIRUBIN,TOTAL 1.6 mg/dL (0.2-1); BLOOD UREA NITROGEN 23 mg/dL (7-18); CALCIUM 8.2 mg/dL (8.5-10.1); CHLORIDE 106 mmol/L (98-107); CO2 24 mmol/L (21-32); CREATININE 0.7 mg/dL (0.55-1.3); GLUCOSE,RANDOM 120 mg/dL (74-106); POTASSIUM 4.3 mmol/L (3.5-5.1); SGOT/AST 55 U/L (15-37); SGPT/ALT 53 U/L (13-61); SODIUM 138 mmol/L (136-145); TOT PROT 6.3 g/dl (6.4-8.2)
[2018-07-12] MEDS: ALBUTEROL SO4 2.5/IPRATROPIUM 0.5 INH SOL 3 ML VIAL.NEB. NEB SCH ×4 (07:40→19:55)
--- NOTE | 2018-07-12 08:21 | PN ---
Progress Note, Physician History of Present Illness: c/o sob--improving - Current Medication List Current Medications: Active Medications Albuterol/Ipratropium (Duoneb -) 1 amp NEB RQID [facility] Last Admin: 07/11/18 21:30 Dose: Not Given Heparin Sodium (Porcine) (Heparin -) 5,000 unit SQ BID [facility] Last Admin: 07/11/18 22:32 Dose: 5,000 unit Insulin Aspart (Novolog Vial Sliding Scale -) 1 vial SQ ACHS [facility]; Protocol Last Admin: 07/12/18 06:23 Dose: Not Given Lisinopril (Prinivil) 10 mg PO DAILY [facility] Last Admin: 07/11/18 10:42 Dose: 10 mg Metformin HCl (Glucophage -) 500 mg PO BID@0700,1630 [facility] Last Admin: 07/12/18 06:25 Dose: 500 mg Prednisone (Deltasone -) 40 mg PO DAILY [facility] Last Admin: 07/11/18 10:41 Dose: 40 mg Sitagliptin Phosphate (Januvia -) 100 mg PO DAILY@0700 [facility] Last Admin: 07/12/18 06:25 Dose: 100 mg - Objective Vital Signs: Vital Signs Temperature 97.9 F 07/12/18 05:00 Pulse Rate 76 07/12/18 05:00 Respiratory Rate 20 07/12/18 05:00 Blood Pressure 133/67 07/12/18 05:00 O2 Sat by Pulse Oximetry (%) 96 07/11/18 23:24 Cardiovascular: Yes: Regular Rate and Rhythm, Murmur Respiratory: Yes: Diminished. No: Rales, Rhonchi Gastrointestinal: Yes: Normal Bowel Sounds, Soft. No: Tenderness Labs: CBC, BMP 07/12/18 05:30 07/12/18 05:30 Problem List - Problems (1) Abnormal EKG Assessment/Plan: -New inf/ant wall changes -Echo noted -Stress test -Cardio Code(s): R94.31 - ABNORMAL ELECTROCARDIOGRAM [ECG] [EKG] (2) Liver lesion Assessment/Plan: -Ct scan -Follow lft -Gi consult Code(s): K76.9 - LIVER DISEASE, UNSPECIFIED (3) COPD (chronic obstructive pulmonary disease) Assessment/Plan: -ON prednisone and nebs Code(s): J44.9 - CHRONIC OBSTRUCTIVE PULMONARY DISEASE, UNSPECIFIED Qualifiers: COPD type: unspecified COPD Qualified Code(s): J44.9 - Chronic obstructive pulmonary disease, unspecified (4) Shortness of breath Assessment/Plan: -As above Code(s): R06.02 - SHORTNESS OF BREATH (5) Abnormal LFTs Assessment/Plan: -awaiting labs Code(s): R94.5 - ABNORMAL RESULTS OF LIVER FUNCTION STUDIES
[2018-07-12] MEDS ORDERED: REGADENOSON 0.4 MG/5 ML PRE-FILLED SYRINGE IVPUSH ONE ×2 (09:26→10:00)
[2018-07-12 12:22] LABS: HBSAG SCREEN Negative (Negative); HEP A AB, IGM Negative (Negative); HEP B CORE AB, TOT Positive (Negative)
[2018-07-12] MEDS: HEPARIN NA (PORCINE) 5,000 UNITS/ML 1ML VIAL SQ SCH ×2 (12:39→21:18)
[2018-07-12] MEDS: predniSONE 20 MG TABLET (UD) PO SCH (12:39)
[2018-07-12] MEDS: LISINOPRIL 10 MG TABLET (FP) PO SCH (12:39)
--- NOTE | 2018-07-12 13:58 | CON.PULM ---
Consult Consult Specialty:: PULMONARY Referred by:: Dr. Sheth Reason for Consultation:: shortness of breath - History of Present Illness Chief Complaint: shortness of breath History of Present Illness: 73yo male with h/o HTN, DM, hyperlipidemia, COPD who was admitted with worsening shortness of breath x 3-4 days. No chest pain or discomfort. + nonproductive cough and wheezing. No fevers, chills or sweats. No sick contacts or recent travel. He received IV steroids and inhaled bronchodilators with improvement in symptoms. Currently denies further shortness of breath, cough or wheezing. States he is a nonsmoker. - History Source History Provided By: Patient, Medical Record Limitations to Obtaining History: Language Barrier - Past Medical History Cardio/Vascular: Yes: HTN, Hyperlipdemia Pulmonary: Yes: COPD Endocrine: Yes: Diabetes Mellitus - Alcohol/Substance Use Hx Alcohol Use: No - Smoking History Smoking history: Former smoker Have you smoked in the past 12 months: No If you are a former smoker, when did you quit?: 10 YEARS Home Medications - Allergies Allergies/Adverse Reactions: Allergies Allergy/AdvReac Type Severity Reaction Status Date / Time No Known Allergies Allergy Verified 07/11/18 00:19 - Home Medications Home Medications: Ambulatory Orders Albuterol 0.083% Nebulizer Gladys [Ventolin 0.083% Nebulizer Soln -] 1 neb NEB Q4H PRN #90 vial 11/25/17 Colestipol HCl 1 gm PO BID 11/25/17 Lisinopril 10 mg PO DAILY 11/25/17 Sitagliptin Phosphate [Januvia] 100 mg PO DAILY 11/25/17 metFORMIN HCL [Metformin HCl] 500 mg PO BID 11/25/17 Review of Systems - Review of Systems Constitutional: denies: Chills, Fever Eyes: denies: Recent Change in Vision HENT: denies: Nasal Congestion, Throat Pain Neck: denies: Stiffness, Tenderness Cardiovascular: reports: Shortness of Breath. denies: Chest Pain, Palpitations Respiratory: reports: Cough, Exercise Intolerance, SOB on Exertion, Wheezing. denies: Hemoptysis Gastrointestinal: denies: Abdominal Pain, Nausea, Vomiting Genitourinary: denies: Dysuria, Hematuria Neurological: denies: Dizziness, Headache Endocrine: denies: Unexplained Weight Loss Physical Exam Vital Sings: Vital Signs Temperature 98 F 07/12/18 10:00 Pulse Rate 72 07/12/18 10:00 Respiratory Rate 20 07/12/18 10:00 Blood Pressure 128/77 07/12/18 10:00 O2 Sat by Pulse Oximetry (%) 96 07/12/18 10:00 Constitutional: Yes: Calm Eyes: Yes: Conjunctiva Clear, EOM Intact HENT: Yes: Atraumatic, Normocephalic Neck: Yes: Supple, Trachea Midline Cardiovascular: Yes: Regular Rate and Rhythm Respiratory: Yes: Diminished (decreased breath sounds at the bases) ...Clubbing: No Gastrointestinal: Yes: Normal Bowel Sounds, Soft. No: Tenderness Edema: No Labs: CBC, BMP 07/12/18 05:30 07/12/18 05:30 Imaging - Results Chest X-ray: Report Reviewed, Image Reviewed (no infiltrates) Problem List - Problems (1) COPD with acute exacerbation Code(s): J44.1 - CHRONIC OBSTRUCTIVE PULMONARY DISEASE W (ACUTE) EXACERBATION (2) HTN (hypertension) Code(s): I10 - ESSENTIAL (PRIMARY) HYPERTENSION Assessment/Plan Acute COPD Exacerbation - mild HTN DM - agree with short course of prednisone 40mg daily x 5 days - inhaled bronchodilators - o2 to keep SpO2>90% - outpt PFTs - DVT prophylaxis Thank you for this consult Denny Franco MD
--- NOTE | 2018-07-12 14:58 | CON.GI ---
Consult Consult Specialty:: GI - History of Present Illness History of Present Illness: 73 y/o male with PMH of alcohol liver disease, drug hepatotoxicity was asked to be seen because of elevated liver enzymes. He was noted to have severe elevation of the SGOT/SGPT and GGTP secondary to different medications. On review of his labs ,he has mild elevation of his liver enzymes. He denies any gi symptoms. - Past Medical History Cardio/Vascular: Yes: HTN, Hyperlipdemia Pulmonary: Yes: COPD Endocrine: Yes: Diabetes Mellitus - Alcohol/Substance Use Hx Alcohol Use: No - Smoking History Smoking history: Former smoker Have you smoked in the past 12 months: No If you are a former smoker, when did you quit?: 10 YEARS Home Medications - Allergies Allergies/Adverse Reactions: Allergies Allergy/AdvReac Type Severity Reaction Status Date / Time No Known Allergies Allergy Verified 07/11/18 00:19 - Home Medications Home Medications: Ambulatory Orders Albuterol 0.083% Nebulizer Gladys [Ventolin 0.083% Nebulizer Soln -] 1 neb NEB Q4H PRN #90 vial 11/25/17 Colestipol HCl 1 gm PO BID 11/25/17 Lisinopril 10 mg PO DAILY 11/25/17 Sitagliptin Phosphate [Januvia] 100 mg PO DAILY 11/25/17 metFORMIN HCL [Metformin HCl] 500 mg PO BID 11/25/17 Review of Systems - Review of Systems Constitutional: denies: No Symptoms, Chills, Diaphoresis, Fever, Lethargy, Loss of Appetite, Malaise, Night Sweats, Unintentional Wgt. Loss, Weakness, Other Eyes: denies: No Symptoms, Blind Spots, Blurred Vision, Double Vision, Eye Pain , Floaters, Photophobia, Recent Change in Vision, Other HENT: denies: No Symptoms, Difficult Swallowing, Ear Discharge, Ear Pain, Epistaxis, Gingival Bleeding, Hearing Loss, Mouth Swelling, Nasal Congestion, Ocular Prosthesis, Throat Pain, Toothache, Ringing in Ears, Other Neck: denies: No Symptoms, Decreased ROM, Lumps, Pain on Movement, Stiffness, Swollen Glands, Tenderness, Other Cardiovascular: denies: No Symptoms, Chest Pain, Edema, Palpitations, Shortness of Breath, Other Respiratory: denies: No Symptoms, Cough, Exercise Intolerance, Hemoptysis, Orthopnea, PND, Snoring, SOB, SOB on Exertion, Wheezing, Other Gastrointestinal: denies: No Symptoms, Abdominal Pain, Bloating, Constipation, Diarrhea, Dysphagia, Indigestion, Melena, Nausea, Rectal Bleeding, Vomiting, Vomiting Blood, Other Physical Exam-GI Vital Signs: Vital Signs Temperature 98 F 07/12/18 10:00 Pulse Rate 72 07/12/18 10:00 Respiratory Rate 20 07/12/18 10:00 Blood Pressure 128/77 07/12/18 10:00 O2 Sat by Pulse Oximetry (%) 96 07/12/18 10:00 Constitutional: Yes: Well Nourished Eyes: Yes: Conjunctiva Clear HENT: Yes: Atraumatic Neck: Yes: Supple Cardiovascular: Yes: Regular Rate and Rhythm Respiratory: Yes: CTA Bilaterally ...Palpate: Yes: Soft. No: Firm/Rigid, Guarding, Hepatomegaly, Mass, Pulsatile Mass, Splenomegaly, Tenderness Labs: CBC, BMP 07/12/18 05:30 07/12/18 05:30 Hepatic Panel Total Bilirubin 1.6 mg/dL (0.2-1) H 07/12/18 05:30 Direct Bilirubin 1.1 mg/dL (0.0-0.2) H 07/11/18 06:45 AST 55 U/L (15-37) H 07/12/18 05:30 ALT 53 U/L (13-61) 07/12/18 05:30 Alkaline Phosphatase 140 U/L (45-117) H 07/12/18 05:30 Albumin 2.7 g/dl (3.4-5.0) L 07/12/18 05:30 Home Medications Medication Instructions Recorded Albuterol 0.083% Nebulizer Gladys 1 neb NEB Q4H PRN #90 vial 11/25/17 [Ventolin 0.083% Nebulizer Soln -] Colestipol HCl 1 gm PO BID 11/25/17 Lisinopril 10 mg PO DAILY 11/25/17 Sitagliptin Phosphate [Januvia] 100 mg PO DAILY 11/25/17 metFORMIN HCL [Metformin HCl] 500 mg PO BID 11/25/17 Current Medications Generic Name Dose Route Start Last Admin Trade Name Freq PRN Reason Stop Dose Admin Albuterol/Ipratropium 1 amp 07/11/18 08:00 12/20/18 11:15 Duoneb - NEB Not Given RQID [facility] Heparin Sodium (Porcine) 5,000 unit 07/11/18 10:00 07/12/18 12:39 Heparin - SQ 5,000 unit BID ALV[facility] Administration Insulin Aspart 1 vial 07/11/18 07:00 07/12/18 12:39 Novolog Vial Sliding Scale - SQ Not Given ACHS [facility] Protocol Lisinopril 10 mg 07/11/18 10:00 07/12/18 12:39 Prinivil PO 10 mg DAILY [facility] Administration Metformin HCl 500 mg 07/12/18 07:00 07/12/18 06:25 Glucophage - PO 500 mg BID@0700,1630 [facility] Administration Prednisone 40 mg 07/11/18 10:00 07/12/18 12:39 Deltasone - PO 40 mg DAILY [facility] Administration Sitagliptin Phosphate 100 mg 07/12/18 07:00 07/12/18 06:25 Januvia - PO 100 mg DAILY@0700 [facility] Administration Problem List - Problems (1) Abnormal LFTs Assessment/Plan: most likely secondary to drug hepatotoxicity R> was made aware to follow up further gi work up as an outpatient Code(s): R94.5 - ABNORMAL RESULTS OF LIVER FUNCTION STUDIES
--- NOTE | 2018-07-12 16:50 | CON.CARD ---
Consult Consult Specialty:: Cardiology Referred by:: Dr. Sheth Reason for Consultation:: Dyspnea - History of Present Illness Chief Complaint: Shortness of breath History of Present Illness: 73 year-old man with a PMHx of HTN, DM, hyperlipidemia, COPD admitted 2017 with worsening shortness of breath x 3-4 days. The patient has worsening SOB with nonproductive cough and wheezing for 3-4 days prior to the admission. He reports no chest pain, palpitation, syncope or near syncope. No edema, orthopnea or PND. No fevers, chills or sweats. ECG 07/11/2018 showed sinus rhythm with LAD and RBBB. Echo 07/11/2018 revealed normal LV size, wall motion and systolic function. No significant valvular abnormalities. Regadenoson nuclear stress test 07/12/2018: Small and mild stress induced ischemia in the inferolateral wall. Normal LV systolic function with LVEF of 69% . Seen by Dr. Franco for COPD exacerbation. - History Source History Provided By: Patient, Family Member, Medical Record Limitations to Obtaining History: No Limitations - Past Medical History Cardio/Vascular: Yes: HTN, Hyperlipdemia Pulmonary: Yes: COPD Endocrine: Yes: Diabetes Mellitus - Alcohol/Substance Use Hx Alcohol Use: No - Smoking History Smoking history: Former smoker Have you smoked in the past 12 months: No If you are a former smoker, when did you quit?: 10 YEARS Home Medications - Allergies Allergies/Adverse Reactions: Allergies Allergy/AdvReac Type Severity Reaction Status Date / Time No Known Allergies Allergy Verified 07/11/18 00:19 - Home Medications Home Medications: Ambulatory Orders Albuterol 0.083% Nebulizer Gladys [Ventolin 0.083% Nebulizer Soln -] 1 neb NEB Q4H PRN #90 vial 11/25/17 Colestipol HCl 1 gm PO BID 11/25/17 Lisinopril 10 mg PO DAILY 11/25/17 Sitagliptin Phosphate [Januvia] 100 mg PO DAILY 11/25/17 metFORMIN HCL [Metformin HCl] 500 mg PO BID 11/25/17 Review of Systems - Review of Systems Constitutional: reports: No Symptoms Eyes: reports: No Symptoms HENT: reports: No Symptoms Neck: reports: No Symptoms Cardiovascular: reports: Shortness of Breath Respiratory: reports: Cough, Exercise Intolerance, SOB, SOB on Exertion, Wheezing Gastrointestinal: reports: No Symptoms Genitourinary: reports: No Symptoms Breasts: reports: No Symptoms Reported Musculoskeletal: reports: No Symptoms Integumentary: reports: No Symptoms Neurological: reports: No Symptoms Endocrine: reports: No Symptoms Hematology/Lymphatic: reports: No Symptoms Psychiatric: reports: No Symptoms Vital Signs: Vital Signs Temperature 97.4 F L 07/12/18 14:00 Pulse Rate 76 07/12/18 14:00 Respiratory Rate 20 07/12/18 10:00 Blood Pressure 132/65 07/12/18 14:00 O2 Sat by Pulse Oximetry (%) 96 07/12/18 10:00 General: Well developed. Chronic ill. No acute distress. Head: Normocephalic. Atraumatic, Eyes: PERRLA, EOMI. Sclerae anicteric. Conjunctivae clear. Neck: Supple. No JVD. No bruits. Heart: Normal S1, S2: Regular rhythm and rate. No murmur. No gallop or rub. Lungs: Symmetrical poor air entry with prolonged expiration. Clear to auscultation. No crackles. No wheezing or rhonchi. Abdomen: Soft. Bowel sound positive. Non tender. No masses. Extremities: No edema. No clubbing or cyanosis. PD 2+, equal bilaterally. Neuro: Intact, no focal findings. AAO X3. - Other Data Labs, Other Data: CBC, BMP 07/12/18 05:30 07/12/18 05:30 Troponin, BNP 07/12/18 05:30 Troponin I < 0.02 Troponin, BNP 07/12/18 05:30 Troponin I < 0.02 Assessment/Plan 73 year-old man with a PMHx of HTN, DM, hyperlipidemia, COPD admitted 2017 with worsening shortness of breath x 3-4 days. ECG 07/11/2018 showed sinus rhythm with LAD and RBBB. Echo 07/11/2018 revealed normal LV size, wall motion and systolic function. No significant valvular abnormalities. Regadenoson nuclear stress test 07/12/2018: Small and mild stress induced ischemia in the inferolateral wall. Normal LV systolic function with LVEF of 69% . 1) Worsening dyspnea, likely due to COPD exacerbation. He has no physical signs of fluid overload. Echo showed normal LV systolic function. 2) Abnormal nuclear stress test: Small and mild stress induced ischemia in the inferolateral wall. He has no symptoms of angina. But he has risk factors of CAD. Would recommend conservative cardiac care at this time. Continue aspirin, metoprolol and atorvastatin. Out-pt cardiac follow up in Dr. Chatman's office. Please call us for reconsult as needed.
[2018-07-12] MEDS: metoPROLOL SUCCINATE 25 MG TAB.SR.24H (FP) PO SCH (17:01)
[2018-07-12 20:35] LABS: CHOLESTEROL 141 mg/dL (50-200); HDL CHOLESTEROL 63 mg/dL (40-60); TRIGLYCERIDES 59 mg/dL (0-150)
[2018-07-12] MEDS ORDERED: ATORVASTATIN CA 40 MG TABLET (FP) PO SCH (22:00)
[2018-07-13] MEDS ORDERED: INSULIN (NOVOLOG) ASPART 100 UNITS/ML 10ML VIAL ONE (04:54)
[2018-07-13 06:08] VITALS: TEMP 97.8
[2018-07-13] MEDS: INSULIN SLIDING SCALE (NOVOLOG) 1 VIAL SQ SCH (06:39)
[2018-07-13] MEDS: metFORMIN HCL 500 MG TABLET (FP) PO SCH (06:41)
[2018-07-13] MEDS: sitaGLIPtin PHOSPHATE 100 MG TABLET (FP) PO SCH (06:41)
[2018-07-13] MEDS: ALBUTEROL SO4 2.5/IPRATROPIUM 0.5 INH SOL 3 ML VIAL.NEB. NEB SCH ×3 (07:25→15:28)
[2018-07-13] MEDS ORDERED: ASPIRIN COATED 81 MG TABLET.EC PO SCH (10:00)
--- NOTE | 2018-07-13 11:00 | PN ---
Progress Note, Physician History of Present Illness: PULMONARY ALERT FEELING BETTER,LESS DYSPNEIC,+ COUGH - Current Medication List Current Medications: Active Medications Albuterol/Ipratropium (Duoneb -) 1 amp NEB RQID [facility] Last Admin: 07/12/18 19:55 Dose: 1 amp Aspirin (Ecotrin -) 81 mg PO DAILY [facility] Atorvastatin Calcium (Lipitor -) 40 mg PO HS [facility] Last Admin: 07/12/18 21:18 Dose: 40 mg Heparin Sodium (Porcine) (Heparin -) 5,000 unit SQ BID [facility] Last Admin: 07/12/18 21:18 Dose: 5,000 unit Insulin Aspart (Novolog Vial Sliding Scale -) 1 vial SQ ACHS [facility]; Protocol Last Admin: 07/13/18 06:39 Dose: 4 units Lisinopril (Prinivil) 10 mg PO DAILY [facility] Last Admin: 07/12/18 12:39 Dose: 10 mg Metformin HCl (Glucophage -) 500 mg PO BID@0700,1630 [facility] Last Admin: 07/13/18 06:41 Dose: 500 mg Metoprolol Succinate (Toprol Xl -) 12.5 mg PO DAILY [facility] Last Admin: 07/12/18 17:01 Dose: Not Given Prednisone (Deltasone -) 40 mg PO DAILY [facility] Last Admin: 07/12/18 12:39 Dose: 40 mg Sitagliptin Phosphate (Januvia -) 100 mg PO DAILY@0700 [facility] Last Admin: 07/13/18 06:41 Dose: 100 mg - Objective Vital Signs: Vital Signs Temperature 97.8 F 07/13/18 06:00 Pulse Rate 78 07/13/18 06:00 Respiratory Rate 18 07/13/18 06:00 Blood Pressure 114/55 L 07/13/18 06:00 O2 Sat by Pulse Oximetry (%) 96 07/12/18 21:00 Constitutional: Yes: Well Nourished Eyes: Yes: WNL HENT: Yes: WNL Neck: Yes: Supple Cardiovascular: Yes: Regular Rate and Rhythm, S1, S2 Respiratory: Yes: Rhonchi (FEW RHONCHI) Gastrointestinal: Yes: Normal Bowel Sounds, Soft Extremities: Yes: WNL Edema: No Labs: CBC, BMP 07/12/18 05:30 07/12/18 05:30 Assessment/Plan Problem List - Problems (1) COPD with acute exacerbation Code(s): J44.1 - CHRONIC OBSTRUCTIVE PULMONARY DISEASE W (ACUTE) EXACERBATION (2) HTN (hypertension) Code(s): I10 - ESSENTIAL (PRIMARY) HYPERTENSION Assessment/Plan Acute COPD Exacerbation - mild HTN DM - prednisone 40mg daily - inhaled bronchodilators - o2 to keep SpO2>90% - outpt PFTs - DVT prophylaxis - Low dose chest ct DR CAMARGO
[2018-07-13] MEDS: metoPROLOL SUCCINATE 25 MG TAB.SR.24H (FP) PO SCH (11:24)
[2018-07-13] MEDS: predniSONE 20 MG TABLET (UD) PO SCH (11:24)
[2018-07-13] MEDS: HEPARIN NA (PORCINE) 5,000 UNITS/ML 1ML VIAL SQ SCH (11:25)
[2018-07-13] MEDS: LISINOPRIL 10 MG TABLET (FP) PO SCH (11:25)
--- NOTE | 2018-07-13 11:25 | DS ---
Physical Examination Vital Signs: Vital Signs Temperature 97.8 F 07/13/18 06:00 Pulse Rate 78 07/13/18 06:00 Respiratory Rate 18 07/13/18 06:00 Blood Pressure 114/55 L 07/13/18 06:00 O2 Sat by Pulse Oximetry (%) 96 07/12/18 21:00 Cardiovascular: Yes: Regular Rate and Rhythm Respiratory: Yes: Regular, CTA Bilaterally Gastrointestinal: Yes: Normal Bowel Sounds, Soft Labs: CBC, BMP 07/12/18 05:30 07/12/18 05:30 Discharge Summary Reason For Visit: ABNORMAL EKG COPD Current Active Problems Abnormal EKG (Acute) Abnormal LFTs (Acute) COPD (chronic obstructive pulmonary disease) (Acute) COPD with acute exacerbation (Acute) HTN (hypertension) (Acute) Liver lesion (Acute) Shortness of breath (Acute) Hospital Course: - Problems (1) Abnormal EKG Assessment/Plan: -New inf/ant wall changes -Echo noted -Stress test positive-cardio follow up noted--meds and outpatient follow up -New meds discussed with pt Code(s): R94.31 - ABNORMAL ELECTROCARDIOGRAM [ECG] [EKG] (2) Liver lesion Assessment/Plan: -Ct scan maybe done as outpatient--pt aware -Follow lft closely --pt on lipitor now -Gi consult noted Code(s): K76.9 - LIVER DISEASE, UNSPECIFIED (3) COPD (chronic obstructive pulmonary disease) Assessment/Plan: -ON prednisone and nebs Code(s): J44.9 - CHRONIC OBSTRUCTIVE PULMONARY DISEASE, UNSPECIFIED Qualifiers: COPD type: unspecified COPD Qualified Code(s): J44.9 - Chronic obstructive pulmonary disease, unspecified (4) Shortness of breath Assessment/Plan: -Improved Code(s): R06.02 - SHORTNESS OF BREATH (5) Abnormal LFTs Assessment/Plan: -Close follow up Code(s): R94.5 - ABNORMAL RESULTS OF LIVER FUNCTION STUDIES Condition: Stable - Instructions Diet, Activity, Other Instructions: Must see your doctor in one week to check labs for liver follow up with dr hanson for your liver Referrals: Pete Sheth MD [Primary Care Provider] - 1 Week Disposition: HOME - Home Medications Comprehensive Discharge Medication List: Ambulatory Orders Albuterol 0.083% Nebulizer Gladys [Ventolin 0.083% Nebulizer Soln -] 1 neb NEB Q4H PRN #90 vial 11/25/17 Colestipol HCl 1 gm PO BID 11/25/17 Lisinopril 10 mg PO DAILY 11/25/17 Sitagliptin Phosphate [Januvia] 100 mg PO DAILY 11/25/17 metFORMIN HCL [Metformin HCl] 500 mg PO BID 11/25/17 Aspirin Coated [Ecotrin -] 81 mg PO DAILY tablet.ec 07/13/18 Atorvastatin Ca [Lipitor] 40 mg PO HS #30 tablet 07/13/18 Metoprolol Succinate [Toprol XL -] 12.5 mg PO DAILY #30 tab.sr.24h 07/13/18 predniSONE [Deltasone -] 40 mg PO DAILY #10 tablet 07/13/18
[2018-07-13 14:22] VITALS: BP 120/74; PULSE 68
== END 2018-07-13 16:47 | disposition home or self-care (01) | DRG 192 ==
LOC: JER 23:49 → JERBED 07-11 04:11 → J4W 07-11 16:44 → OBSVTOIN 07-11 18:15
PROVIDERS: ADMIT Internal Medicine; ATTEND Family Medicine
DX: J44.1 Chronic obstructive pulmonary disease with (acute) exacerbation (principal); R94.31 Abnormal electrocardiogram [ECG] [EKG]; K70.9 Alcoholic liver disease, unspecified; I10 Essential (primary) hypertension; E78.5 Hyperlipidemia, unspecified; E11.9 Type 2 diabetes mellitus without complications; Z79.84 Long term (current) use of oral hypoglycemic drugs; Z87.891 Personal history of nicotine dependence; I45.10 Unspecified right bundle-branch block; R74.0 Nonspecific elevation of levels of transaminase and lactic acid dehydrogenase [LDH]; K42.9 Umbilical hernia without obstruction or gangrene; K76.9 Liver disease, unspecified
CPT/HCPCS: 36415; 71045-TC-FY; 76705-TC; 78452-TC; 80053; 80061; 80076; 82550; 82553; 82962; 83036; 83721; 83880; 84484; 85025; 85027; 86704; 86706; 86708; 87340; 87804; 93005; 93010; 93017; 93306-TC; 94640; 99284-25; A9502; G0378; J1644; J2785

== ENCOUNTER 2019-03-07 13:43 | Inpatient (IN) | payer OTHER | END 2019-04-04 21:23 | LOC: JER 13:43 → J5S 03-08 18:22 → JICU 03-28 11:02 → J5S 03-29 18:03 → JERBED 19:58 ==